=== PATIENT | male | born 2000 ===

== ENCOUNTER → 2025-08-12 14:30 | Outpatient (BNV) | payer OTHER, SELFPAY | PROVIDERS: Visit Provider Internal Medicine | DX: I49.3 Ventricular premature depolarization (principal); I49.49 Other premature depolarization | CPT/HCPCS: 93244 ==

== ENCOUNTER → 2025-08-12 14:30 | Outpatient (REF) | payer OTHER, SELFPAY ==
--- OUTSIDE RECORDS SUMMARY | 2025-09-06 09:05 | XMS_ITS | Clinical Summary ---
Author Organization [facility] Address [address] [place] [id number] Phone Care Team Providers Care Solar Sales Rep Name Role Phone Unavailable Primary Care Provider Unavailabl e Allergies No known active allergies Medications No known medications Resolved Problems Problem Noted Date Diagnosed Date Resolved Date Acne vulgaris 10/24/2019 02/16/2021 Patellofemoral disorder of left knee 08/18/2016 10/24/2019 Patellofemoral disorders, right knee 08/18/2016 10/24/2019 Immunizations Immunization Administration Dates Next Due DTaP 02/24/2005 HPV Vaccine 9 Valent 10/22/2018,08/18/2016 Hep A, Adult 02/16/2021 Hep A, ped/adol 10/24/2019 Hep B, ped/adol 09/07/2010,09/29/2009,02/24/2005 Hib (PRP-T) 02/24/2005 IPV 09/07/2010,09/29/2009,02/24/2005 Influenza, injectable, quadr ivalent, preservative free 10/24/2019 MMR 09/09/2011,09/22/2009 Meningococcal Conj (Menactra) MCV4P 10/22/2018,1 Td (adult) (MBL), 2 Lf tetan us toxoid, PF, adsorbed 09/07/2010,09/22/2009 Tdap 01/25/2013 Varicella 09/22/2009,02/24/2005 Family History Relation Name Status Comments Cousin 1 Maternal Cousin s: None Cousin 2 Paternal Cousin s: None Father Alive Father's Brother Alive Father's Sister Paternal Aun t: None Maternal Grandfather Mat GFa ther: unknown history Maternal Grandmother Alive Mat GMo ther: Has unknown health problems Mother Mother: breast cancer, 05/05 age 41 Other 1 None Other 2 None Other 3 None Other 4 None Other 5 Alive Other 6 Alive Other 7 Alive Other 8 Alive Other 9 Alive Has unknown hea lth problems Other [address] [place] Other 11 at age 75, leslie ural causes Other 12 breast cancer, 05/05 age 42 Other 13 unknown history Paternal Grandfather Pat GFa ther: at age 74, natural causes Paternal Grandmother Pat GMo ther: at age 74 of stroke Social History Tobacco Use Types Packs/Day Years Used Date Smoking Tobacco: Never Smokeless Tobacco: Never Alcohol Use Standard Drinks/Week Comments No 0 (1 standard drink = 0.6 oz pur e alcohol) Hunger/Food Answer Date Recorded In the last 12 months, did y ou or your family ever eat less than you felt you should because there wasn't enough money for food? No 02/16/2021 Stable Housing Answer Date Recorded Are you worried that in the next 2 months you may not have stable housing? No 02/16/2021 Transportation Concerns Answer Date Rec orded In the last 12 months, have you or your family ever had to go without healthcare because you didn't have a way to get there? No 02/16/2021 Hazards in Home Answer Date Recorded Think about the place you li ve. Do you have problems with any of the following? Pests (mice or roaches), mold, no/not working smoke detectors, water leaks, no window guards. No 2020 Financing Utilities Answer Date Recorde d In the last 12 months, has t he [employer], gas, oil, or water [employer] threatened to shut off your services in your home? No 02/16/2021 Safety at Home Answer Date Recorded Are you or your family worried about feeling saf e in your home? No 02/16/2021 Outside Support Answer Date Recorded Do you feel that you need mo re support from other people or programs to help you care for yourself or your family? No 02/16/2021 Understanding Health Concerns Answer Da te Recorded Do you need help understandi ng your or your child's healthcare needs (diagnosis, medications, plan, etc.)? No 02/16/2021 Financing Health Concerns Answer Date R ecorded In the last 12 months, was t here a time when your child needed to see a doctor or get medications or supplies but could not because of cost? No 02/16/2021 Missing School or Work Answer Date Tello rded Did you or your child miss s chool or work because of a health problem that could have been avoided? No 02/16/2021 Sex and Gender Information Value Date Recorded Sex Assigned at Not on file Legal Sex Male 3:52 PM EST Gender Identity Not on file Sexual Orientation Straight 10/24/2019 3: 34 PM EST Last Filed Vital Signs Vital Sign Reading Time Taken Comments Blood Pressure 118/64 02/16/2021 1:42 PM EDT man ual Pulse 72 02/16/2021 1:30 PM EDT Temperature 37.1 C (98.7 F) 10/14/2013 12:00 AM EST Respiratory Rate - - Oxygen Saturation - - Inhaled Oxygen Concentration - - Weight 66.1 kg (145 lb 12.8 oz) 02/16/2021 1:30 PM EDT Height 178.4 cm (5' 10.25 ) 02/16/2021 1:30 PM E DT Body Mass Index 20.77 02/16/2021 1:30 PM EDT Plan of Treatment Health Maintenance Due Date Last Done Comments Men B Vaccine (1 of 2 - Standard) 2017 Influenza Vaccines (#1) 2025 10/24/2019 COVID-19 Vaccine ( season) 2025 11/04/2021, 03/24/2021, 03/03/2021 DTaP,Tdap,and Td Vaccines (6 - Td or Tdap) 01/31/2033 01/31/2023, 01/25/2013, 09/07/2010, Additional history exists HIB Vaccines Completed 02/24/2005 Varicella Vaccines Completed 09/22/2009, 02/24/2005 Hepatitis B Vaccines Completed 09/07/2010, 09/29/2009, 02/24/2005 IPV Vaccines Completed 09/07/2010, 10/2008, 02/24/2005 MMR Vaccines Completed 09/09/2011, 09/22/2009 HPV Vaccines Completed 10/22/2018, 08/18/2016 Meningococcal Vaccine Completed 10/22/2018, 016 Hepatitis A Vaccines Completed 02/16/2021, 10/24/20 19 Pneumococcal Vaccine Aged Out No long er eligible based on patient's age to complete this topic
--- OUTSIDE RECORDS SUMMARY | 2025-09-06 09:05 | XMS_ITS | Clinical Summary ---
Author Organization [facility] Address [address] [place] [id number] Phone Care Team Providers Care Occupational Therapist Aide Name Role Phone Juan Mathias MD Primary Care Provider [phone] Social History Tobacco Use Types Packs/Day Years Used Date Smoking Tobacco: Never Assessed Education Answer Date Recorded Are you interested in more education? Not on chela e 02/24/2023 Are you concerned about learning? Not on file 02/24/2023 No 02/24/2023 No 02/24/2023 Digital Access Answer Date Recorded No 03/28/2023 No 03/28/2023 No 03/28/2023 Reliable internet access at home? Not on file 03/28/2023 Device with a working camera? Not on file Sex and Gender Information Value Date Recorded Sex Assigned at Not on file Legal Sex Male 10:57 AM EST Gender Identity Not on file Sexual Orientation Not on file Plan of Treatment Not on file Medical Devices Not on file Insurance [facility] Care Teams Occupational Therapist Aide Relationship Specialty Start Date End Date Juan Mathias MD [address] [place] [address] [address] [place] [address] [email or web address] PCP - General Pediatrics 10/22/18 Additional Source Comments The information contained in this document represents components of the legal health record. It is not the complete legal health record.[facility]
--- OUTSIDE RECORDS SUMMARY | 2025-09-06 09:05 | XMS_ITS | Encounter Summary ---
Author Organization [facility] Address [address] [place] [address] Phone Care Team Providers Care Supervisor Housecleaner Name Role Phone Clifton Oliver MD Primary Care Provider [phone] Encounter Details Date Type Department Care Team (Late st Contact Info) Description 06/07/2017 Conversion Encounter [facility] - [address], [address] [place] [address] Clifton Oliver MD [address] [place] [address] Social History Tobacco Use Types Packs/Day Years Used Date Smoking Tobacco: Never Assessed Sex and Gender Information Value Date Recorded Sex Assigned at Not on file Legal Sex Male 3:52 PM EST Gender Identity Not on file Sexual Orientation Straight 10/24/2019 3: 34 PM EST documented as of this encounter Plan of Treatment Not on file documented as of this encounter Visit Diagnoses Not on filedocumented in this encounter Care Teams Supervisor Housecleaner Relationship Specialty Start Date End Date Clifton Oliver MD [address] [place] [address] PCP - General 12/20/16 05/28/24 documented as of this encounter
== END ==
LOC: HO.CARD 14:30
PROVIDERS: Visit Provider Physician Assistant
DX: R00.2 Palpitations (principal)
CPT/HCPCS: 93242